=== PATIENT | male | born 1990 | race Caucasian/White ===

== ENCOUNTER 2018-03-07 08:29 | Emergency (ER) | payer SELFPAY ==
[2018-03-07 08:45] VITALS: BP 110/67; PULSE 91; TEMP 98.5; BMI 24.3
--- NOTE | 2018-03-07 08:46 | PDOC ---
History of Present Illness - General Chief Complaint: Pain Stated Complaint: LEFT ARM NUMBNESS Time Seen by Provider: 03/07/18 08:45 History Source: Patient Exam Limitations: No Limitations - History of Present Illness Initial Comments: 03/07/18 09:00 27 yo male with no pmhx here with c/o palpitations and paresthesia, tingling feeling left arm. pt works nights, had two monster energy drinks last at 2 am. now feeling lightheaded. no f/c no cp no sob. no h/o thyroid disease. no h/o exertional syncope or family h/o sudden cardiac arrest. no recent headaches, or neck or back pain. no new weakness. tingling from shoulder / tricep down to fingers. states has had carpal tunnel syndrome in past but this is slightly different. job is manual labor . Past History - Past Medical History Allergies/Adverse Reactions: Allergies Allergy/AdvReac Type Severity Reaction Status Date / Time No Known Allergies Allergy Verified 03/07/18 08:31 Home Medications: Ambulatory Orders NK [No Known Home Medication] 03/07/18 COPD: No - Suicide/Smoking/Psychosocial Hx Smoking History: Never smoked Have you smoked in the past 12 months: No Information on smoking cessation initiated: No Hx Alcohol Use: No Drug/Substance Use Hx: No Review of Systems - Review of Systems Constitutional: No: Chills, Diaphoresis HEENTM: No: Eye Pain Respiratory: No: Orthopnea, Shortness of Breath, Wheezing Cardiac (ROS): Yes: Lightheadedness, Palpitations. No: Chest Pain ABD/GI: No: Nausea, Vomiting Musculoskeletal: No: Back Pain, Neck Pain Neurological: Yes: Paresthesia. No: Headache, Weakness All Other Systems: Reviewed and Negative *Physical Exam - Vital Signs Last Vital Signs Temp Pulse Resp BP Pulse Ox 98.5 F 91 H 20 110/67 100 03/07/18 08:30 03/07/18 08:30 03/07/18 08:30 03/07/18 08:30 03/07/18 08:30 - Physical Exam Comments: 03/07/18 09:02 awake alert lungs clear bilaterally heart reg no mrg abd soft nt nd. ext wwp no edema. no calf tenderness. nuero alert oriented x 3. strength symmetric 5/5 all four ext. sensation intact throughout, med, ulnar rad n. intact. 2 + symmetric med/ ulnar pulses bilaterally. Moderate Sedation - Procedure Monitoring Vital Signs: Procedure Monitoring Vital Signs Temperature 98.5 F 03/07/18 08:30 Pulse Rate 91 H 03/07/18 08:30 Respiratory Rate 20 03/07/18 08:30 Blood Pressure 110/67 03/07/18 08:30 O2 Sat by Pulse Oximetry (%) 100 03/07/18 08:30 Heart Score/ECG Review #1 General ECG Interpretation: Sinus Rhythm, Normal Rate (83), Normal Intervals, No acute ischemic changes ED Treatment Course - LABORATORY CBC & Chemistry Diagram: 03/07/18 09:00 03/07/18 09:00 Medical Decision Making - Medical Decision Making 03/07/18 08:45 27 yo male with c/o palpitations, and paresthesia to left arm. normal nuerological exam. denies drug use. differential electrolyte hyperthyroid, caffeine tox, anemia, dyrthymia, plan ekg labs tsh. reassess. 03/07/18 09:03 03/07/18 09:57 pt labs unremarkable. TSH still pending. vs normal. will call pt with TSH results. ekg normal sinus rhtym. will dc pt with nuerology followup. normal nuero exam here. advised to stay away from caffeinated. *DC/Admit/Observation/Transfer Diagnosis at time of Disposition: Paresthesia, Palpitations, Caffeine adverse reaction - Discharge Dispostion Disposition: HOME Condition at time of disposition: Improved - Referrals Schedule a call back: TSH rsults Referrals: Reza Carnes MD [Staff Physician] - - Patient Instructions Printed Discharge Instructions: DI for Palpitations, DI for Numbness/tingling Additional Instructions: you should avoid energy drinks as they can cause symptoms of caffeine intoxication such as palpitations, dehydration, and other electrolyte abnormalities. drin plenty of fluids. you can follow up with nuerology for your tingling. your labs are all unremarkable including sodium, potassium and kidney function. see attached sheets . you should follow up with your regular doctor. return for arm weakenss, worsening symtpoms or any concerns. - Post Discharge Activity
[2018-03-07] MEDS ORDERED: SODIUM CHLORIDE 0.9% 1000 ML INFUS.BAG IV ONE (08:50)
[2018-03-07 09:23] LABS: BASO % 0.5 % (0-2.0); EOS % 6.2 % (0-4.5); HEMATOCRIT 44.9 % (35.4-49); HEMOGLOBIN 14.6 GM/dl (11.7-16.9); MCH 28.9 pg (25.7-33.7); MCHC 32.6 g/dl (32.0-35.9); MEAN CELL VOLUME 88.6 fl (80-96); MEAN PLT VOLUME 9.2 fl (7.5-11.1); MONO % 8.5 % (3.8-10.2); NEUT % 52.8 % (42.8-82.8); PLATELET COUNT 207 K/MM3 (134-434); RBC 5.06 M/mm3 (4.00-5.60); RDW 12.7 % (11.9-15.9)
[2018-03-07 09:31] LABS: ALBUMIN 4.3 g/dl (3.5-5.0); ALK PHOS 62 U/L (32-92); ANION GAP 6 MMOL/L (8-16); BILIRUBIN,TOTAL 0.8 mg/dl (0.2-1.0); BLOOD UREA NITROGEN 12 mg/dl (7-18); CALCIUM 9.3 mg/dl (8.4-10.2); CHLORIDE 106 mmol/L (98-107); CO2 25 mmol/L (22-28); CREATININE 0.8 mg/dl (0.6-1.3); GLUCOSE,RANDOM 107 mg/dl (74-106); MAGNESIUM 2.1 mg/dL (1.8-2.4); POTASSIUM 3.7 mmol/L (3.5-5.1); SGOT/AST 27 U/L (10-42); SGPT/ALT 32 U/L (10-40); SODIUM 137 mmol/L (136-145); TOT PROT 6.7 g/dl (6.4-8.3)
--- NOTE | 2018-03-07 12:15 | EKG ---
Test Reason : Blood Pressure : / mmHG Vent. Rate : 083 BPM Atrial Rate : 083 BPM P-R Int : 130 ms QRS Dur : 100 ms QT Int : 366 ms P-R-T Axes : 053 027 023 degrees QTc Int : 430 ms NORMAL SINUS RHYTHM NORMAL ECG NO PREVIOUS ECGS AVAILABLE Confirmed by AUSTIN ZAMAN MD ([id number]) on 03/07/2018 12:15:35 PM Referred By: NUNO EATON Confirmed By:AUSTIN ZAMAN MD
== END 2018-03-07 10:16 | disposition home or self-care (01) ==
LOC: FER 08:29
PROC: 3E0337Z Introduction of Electrolytic and Water Balance Substance into Peripheral Vein, Percutaneous Approach (ICD-10-PCS; principal; 2018-03-07)
DX: R20.2 Paresthesia of skin (principal); R00.2 Palpitations; T43.615A Adverse effect of caffeine, initial encounter; Y92.89 Other specified places as the place of occurrence of the external cause
CPT/HCPCS: 36415; 80053; 83735; 84443; 85025; 93005; 99283-25; J7030